=== PATIENT | female | born 1945 | race Caucasian/White ===

== ENCOUNTER 2016-08-22 09:36 | Outpatient (CLI) | payer MEDICARE, BC | END 2016-08-22 09:37 | disposition home or self-care (01) | DX: G47.33 Obstructive sleep apnea (adult) (pediatric) (principal) | CPT/HCPCS: 99214; G0463 ==

== ENCOUNTER 2017-08-12 09:29 | Outpatient (CLI) | payer MEDICARE, BC ==
--- NOTE | 2017-08-12 11:55 | XRAY Report ---
THREE VIEW RIGHT SHOULDER: 08/12/2017 CLINICAL INDICATION: Pain. FINDINGS: AP, oblique, scapular Y views of the right shoulder demonstrate severe degenerative changes of the glenohumeral joint, with bulky osteophytes. There is no evidence of acute fracture or dislocation. Surgical clips are noted in the right axilla. 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 TD: 08/12/2017 11:54
== END 2017-08-12 09:30 | disposition home or self-care (01) ==
LOC: DI.S 09:29
PROVIDERS: ATTEND Internal Medicine
DX: M19.011 Primary osteoarthritis, right shoulder (principal)

== ENCOUNTER 2017-11-12 13:07 | Outpatient (CLI) | END 2017-11-12 13:08 | disposition home or self-care (01) | CPT/HCPCS: 99214; G0463 ==

== ENCOUNTER 2019-02-11 14:03 | Outpatient (CLI) | payer MEDICARE, BC ==
[2019-02-11 15:03] VITALS: BP 122/70
--- NOTE | 2019-02-11 15:04 | SLEEP CARE CONSULTATION ---
Information from patient questionnaire entered by Isabelle Bradley. I have reviewed and concur with the information entered by Isabelle Bradley. This document represents the service I personally performed and the decisions made by me, Stephanie Archer RN, MSN, AERIAL GUNNER. History of Present Illness Previous diagnosis: Severe, Obstructive Sleep Apnea-Hypopnea Syndrome AHI: 33 Reason for CPAP/BiPAP follow up: annual Equipment type: CPAP Equipment obtained from: [employer] Mask style: Nasal Mask brand: Respironics Backup mask available: Yes Last cushion change: 1.5 weeks ago CPAP Compliance Data - Data Reviewed with Patient Average duration of nightly device use: 9.7 Compliance rate %: 100 (180 days) Current pressure setting (cmH2O): 15 Humidity setting: off Heated hose setting: off Average residual AHI: 3.5 Subjective Patient concerns: denies: aerophagia, mask discomfort, air blowing in eyes, mask leak noise, condensation in mask/hose, nasal congestion, dry mouth, nose, throat, epistaxis Observed to snore while using device: No Current pressure setting perceived as: comfortable On therapy, patient: reports: sleeping better, awakening more refreshed, being more awake and alert during the day, more rested overall. denies: drowsiness while driving Initial [place] Sleepiness Scale score: 3 Current [place] Sleepiness Scale score: 2 Allergies and Home Medications Known drug allergies: No Home medication list reviewed: Yes Allergy and home medication list: Medication Name (generic/name brand) Strength & Dosage Bupropion Hydrochloride XL 300mg/24hr tab one daily Vitamin D3 5000IU cap one daily Atorvastatin Calcium 20mg tab one daily Losartan Potassium 25mg tab one daily Metformin HCL 1000mg tab one twice daily Fluoxetine 20mg tab one daily Tylenol 500mg tab one to three daily prn vitamin B 1000mcg daily Review of Systems Review of systems same as previous: No (cataract surgery next week. right shoulder pain and ortho evaluation) Physical Exam Blood Pressure: 122/70 Cuff size: long Heart Rate: 94 O2 Saturation: 97 Height: 5 ft 6.5 in Weight (kg): 269 lb 9.6 oz Weight change since last visit: lost 4 pounds Body Mass Index: 42.8 BMI Classification: Class 3 Impression and Plan 1. Obstructive Sleep Apnea-Hypopnea Syndrome,severe , with good treatment compliance and apnea control. On CPAP therapy, the patient has better sleep quality and is more rested overall. She has started to lose weight. I discussed how her obesity can increase health risks and her first goal is about 20 pounds. She is to discuss with PCP weight loss goals and certified novell engineer consult. If loses significant weight, her apnea risks and pressure requirements will reduce. Symptoms to report were discussed. The CPAP device stopped working a couple of times the past week while she was sleeping. Thus I will have it checked to see if auto off is on and have it turned off. If not, she is to have the device checked on malfunction. Further research showed that she is due for a new device. Her device may be starting to malfunction, so I will update the device. Patient agreed with plan. A DWO prescription was made. Patient to contact this office after obtains device so a compliance follow up can be made. Since she does not use the humidity, she is to start humidity if any dryness symptoms with rationale explained. Patient's apnea severity and rationale for treatment to reduce apnea, improve sleep quality and reduce cardiovascular and cerebrovascular events was reviewed. I also reviewed the benefit of consistent device use of CPAP for diabetes and depression. She is to take her CPAP with her to any surgical procedure to use afterwards as sedation increase apnea. * Update device and set at [id number] * Discuss weight loss goals with PCP at her next visit. * Notify me if snoring with mask or feeling that the pressure is too much or too little * Attempt to lose weight * Return for follow up in 1-2 months after new device , or sooner if concerns arise I spent 100% of this 30 minute visit face to face with the patient with greater than 50% of this was spent time counseling the patient and coordination of care.
== END 2019-02-11 14:04 | disposition home or self-care (01) ==
LOC: SC 14:03
PROVIDERS: ATTEND Nurse Practitioner Family
DX: G47.33 Obstructive sleep apnea (adult) (pediatric) (principal); E66.9 Obesity, unspecified; Z68.41 Body mass index [BMI] 40.0-44.9, adult
CPT/HCPCS: 99212; 99214

== ENCOUNTER 2019-04-29 15:35 | Outpatient (CLI) | payer MEDICARE, BC ==
[2019-04-29 17:24] VITALS: BP 132/72
--- NOTE | 2019-04-29 17:24 | SLEEP CARE CONSULTATION ---
Information from patient questionnaire entered by Isabelle Bradley. I have reviewed and concur with the information entered by Isabelle Bradley. This document represents the service I personally performed and the decisions made by me, Stephanie Archer, RN, MSN, WATCHER LOOKOUT TOWER. History of Present Illness Previous diagnosis: Severe, Obstructive Sleep Apnea-Hypopnea Syndrome AHI: 33 Reason for follow up: first compliance after device update Equipment type: CPAP Equipment obtained from: [employer] Mask style: Nasal Mask brand: Respironics Backup mask available: Yes Last cushion change: 10 days ago CPAP Compliance Data - Data Reviewed with Patient Average duration of nightly device use: 9.25 Compliance rate %: 96.7 Current pressure setting (cmH2O): 15 Humidity settin Heated hose settin Average residual AHI: 3.7 Average large leak: zero Subjective Patient concerns: reports: other (sleep affected by shoulder pain, reduced with steroid shot ). denies: aerophagia, mask discomfort, air blowing in eyes, mask leak noise, condensation in mask/hose, nasal congestion, dry mouth, nose, throat, epistaxis Observed to snore while using device: No Current pressure setting perceived as: comfortable On therapy, patient: reports: sleeping better, awakening more refreshed, being more awake and alert during the day, more rested overall. denies: drowsiness while driving Initial [place] Sleepiness Scale score: 3 Current [place] Sleepiness Scale score: 3 Allergies and Home Medications Known drug allergies: Yes (lisinopril ) Home medication list reviewed: Yes Allergy and home medication list: Bupropion Hydrochloride XL 300mg/24hr tab one daily Vitamin D3 5000IU cap one daily Atorvastatin Calcium 20mg tab one daily Losartan Potassium 25mg tab one daily Metformin HCL 1000mg tab one twice daily Fluoxetine 20mg tab one daily Tylenol 500mg tab one to three daily prn Review of Systems Review of systems same as previous: No (bilateral cataract surgery with benefit noted /shoulder surgery planned may) Physical Exam Blood Pressure: 132/72 Cuff size: long Heart Rate: 83 O2 Saturation: 97 Height: 5 ft 7 in Weight: 270 lb 1.6 oz Body Mass Index: 42.3 BMI Classification: Obesity Class 3 Impression and Plan 1. Obstructive Sleep Apnea-Hypopnea Syndrome, severe, with excellent treatment compliance and good apnea control. On CPAP therapy, the patient has better sleep quality and is more rested overall. She forgot to follow up with PCP in regard to weight reduction, she was advised to review again after her shoulder surgery recovery in May. I again reminded her how significant weight loss could reduce her CPAP requirements and symptoms to report for weight loss. Patient's apnea severity and rationale for treatment to reduce apnea, improve sleep quality and reduce cardiovascular and cerebrovascular events was reviewed. I also reviewed the benefit of consistent device use of CPAP for her hypertension, diabetes, depression/anxiety. * Continue CPAP pressure at 15 cmH2O * follow up with PCP re weight loss as discussed. * Notify me if snoring with mask or feeling that the pressure is too much or too little * Attempt to lose weight * Return for follow up in 1 year , or sooner if concerns arise I spent 100% of this 20 minute visit face to face with the patient with greater than 50% of this was spent time counseling the patient and coordination of care.
== END 2019-04-29 15:36 | disposition home or self-care (01) ==
LOC: SC 15:35
PROVIDERS: ATTEND Nurse Practitioner Family
DX: G47.33 Obstructive sleep apnea (adult) (pediatric) (principal); E66.9 Obesity, unspecified; Z68.41 Body mass index [BMI] 40.0-44.9, adult
CPT/HCPCS: 99213; G0463; 99212

== ENCOUNTER 2020-05-26 15:06 | Outpatient (CLI) | payer MEDICARE, BC ==
--- NOTE | 2020-05-26 13:59 | SLEEP CARE CONSULTATION ---
Information from patient questionnaire entered by Isabelle Bradley. I have reviewed and concur with the information entered by Isabelle Bradley. This document represents the service I personally performed and the decisions made by me, Stephanie Archer, RN, MSN, TREASURER. History of Present Illness Service Date and Time: 05/26/2020 1330 Previous diagnosis: Severe, Obstructive Sleep Apnea-Hypopnea Syndrome AHI: 33 (in 2003) Reason for follow up: annual (last seen 04/2019) Equipment type: CPAP Equipment obtained from: [employer] (getting supplies as needed) Mask style: Nasal Backup mask available: Yes (old mask ) Last cushion change: 1 week ago Prior sleep studies: Yes Year and Where: 2003 - [facility] additional information: Reviewed last visit note from 05/14 prior to patient follow up visit today. This last visit was a first compliance after updating her CPAP. There was good compliance and stated benefit from treatment. She was reminded to discuss weight management with her PCP for her morbid obesity. I also informed her of weight loss effect to her CPAP pressure requirements and symptoms to report for PAP pressure adjustment. CPAP Compliance Data - Data Reviewed with Patient Average duration of nightly device use: 10 hr 11 min Compliance rate %: 99.4 (180 days) Current pressure setting (cmH2O): 15 Humidity settin Heated hose settin Average residual AHI: 4.1 Average large leak: 1 min 31 sec Subjective Patient concerns: reports: mask leak noise (adjusts mask without problem). denies: aerophagia, mask discomfort, air blowing in eyes, condensation in mask/hose, nasal congestion, dry mouth, nose, throat, epistaxis Observed to snore while using device: No Current pressure setting perceived as: comfortable On therapy, patient: reports: sleeping better, awakening more refreshed, being more awake and alert during the day, more rested overall. denies: drowsiness while driving Initial [place] Sleepiness Scale score: 3 (in 2010) Allergies and Home Medications Home medication list reviewed: Yes (increased doses of depression meds) Physical Exam Height: 5 ft 7 in Weight: 257 lb Body Mass Index: 40.2 BMI Classification: Morbidly Obese Impression and Plan 1. Obstructive Sleep Apnea-Hypopnea Syndrome, severe, with good treatment compliance and good apnea control. On CPAP therapy, the patient has better sleep quality and is more rested overall. She has increased her sleep time since last year and Covid pandemic activity restrictions from 9hours and 15 minutes to 10 hours and 11 minutes. I reviewed that most people require 7-9 hours of sleep and too much sleep can contribute to fatigue as well as increased mortality. Increased sleep can also be from depression. She states her PCP is aware of sleep needs and she is working closely with her PCP on her depression. Depression medication doses have been adjusted with benefit stated. She will try to reduce time in bed. Patient has also been successful in losing weight this past year and plans on losing more. She attributes this to a new roommate who cooks nutritious meals so she does the clean up which is working well. She is also increasing exercise. Currently patients BMI is 42.3 obesity class . I reviewed how her loss of weight can reduce the risk of apnea, CPAP pressure requirements and overall health risks especially cardiovascular and diabetes. Thus patient is advised to continue to lose weight. The patient's CPAP pressure range should accommodate some weight loss.was changed to 12-15 cmH2O to accommodate future weight loss. Symptoms to report for additional pressure adjustment discussed. Patient's apnea severity and rationale for treatment to reduce apnea, improve sleep quality and reduce cardiovascular and cerebrovascular events was reviewed. I also reviewed the benefit of consistent device use of CPAP for hypertension, depression/anxiety. * * Changeauto CPAP pressure to 12-15 cmH2O * Notify me if snoring with mask or feeling that the pressure is too much or too little * Continue to lose weight * Call this office if any problems using CPAP * Return for follow up in , or sooner if concerns arise Visit Type: Telehealth Phone ([employer]) Patient Location: Home Location of Provider: Home Patient agrees and consents to this telehealth visit type: Yes Patient agrees to have their insurance billed: Yes Time Spent with Patient (minutes): 14 Provider Statement: I spent 100% of the Telehealth Phone Call with the patient with greater than 50% spent counseling the patient and coordination of care.
== END 2020-05-26 15:07 | disposition home or self-care (01) ==
LOC: SC 15:06
PROVIDERS: ATTEND Nurse Practitioner Family
DX: G47.33 Obstructive sleep apnea (adult) (pediatric) (principal); E66.01 Morbid (severe) obesity due to excess calories; Z68.41 Body mass index [BMI] 40.0-44.9, adult

== ENCOUNTER 2022-02-14 09:22 | Outpatient (CLI) | payer MEDICARE, BC ==
[2022-02-14 14:35] LABS: BASOPHILS % (AUTO) 0.8 %; EOSINOPHILS # (AUTO) 0.3 10^3/uL (0.0-0.7); EOSINOPHILS % (AUTO) 6.4 %; HCT - HEMATOCRIT 39.5 % (37.0-47.0); HGB - HEMOGLOBIN 12.7 g/dL (12.0-16.0); LYMPHOCYTES # (AUTO) 2.4 10^3/uL (1.5-3.5); LYMPHOCYTES % (AUTO) 46.1 %; MEAN CORPUSCULAR HEMOGLOBIN 30.8 pg (27.0-31.0); MEAN CORPUSCULAR HGB CONC 32.2 g/dL (32.0-36.0); MEAN CORPUSCULAR VOLUME 95.9 fL (81.0-99.0); MONOCYTES # (AUTO) 0.4 10^3/uL (0.0-1.0); MONOCYTES % (AUTO) 7.2 %; NEUTROPHILS # (AUTO) 2.1 10^3/uL (1.5-6.6); NEUTROPHILS % (AUTO) 39.3 %; PLT - PLATELET COUNT 271 10^3/uL (130-450); RED BLOOD COUNT 4.12 10^6/uL (4.20-5.40); RED CELL DISTRIBUTION WIDTH 13.1 % (12.0-15.0); WHITE BLOOD COUNT 5.3 x10^3/uL (4.8-10.8)
[2022-02-14 15:27] LABS: ALBUMIN 4.1 g/dL (3.2-5.5); ALBUMIN/GLOBULIN RATIO 1.4 (1.0-2.2); BILIRUBIN,TOTAL 0.9 mg/dL (0.2-1.0); CALCIUM 9.5 mg/dL (8.5-10.3); CREATININE 1.3 mg/dL (0.4-1.0); POTASSIUM 4.7 mmol/L (3.5-5.0); TOTAL PROTEIN 7.1 g/dL (6.7-8.2)
[2022-02-14 22:15] LABS: ESTIMATED AVERAGE GLUCOSE 140 mg/dL (70-100); HEMOGLOBIN A1c% 6.5 % (4.27-6.07)
== END 2022-02-14 09:23 | disposition home or self-care (01) ==
LOC: LAB.S 09:22
PROVIDERS: ATTEND Internal Medicine
DX: E11.649 Type 2 diabetes mellitus with hypoglycemia without coma (principal); I10 Essential (primary) hypertension
CPT/HCPCS: 36415; 80053; 82043; 82570; 83036; 85025

== ENCOUNTER 2022-08-14 12:47 | Outpatient (CLI) | payer MEDICARE, BC ==
[2022-08-14 13:29] VITALS: BP 134/76
--- NOTE | 2022-08-14 13:29 | SLEEP CARE CONSULTATION ---
Information from patient questionnaire entered by Mary Martinez. I have reviewed and concur with the information entered by Mary Martinez. This document represents the service I personally performed and the decisions made by me, Barb Brothers ARNP. History of Present Illness Service Date and Time: 08/14/2022 1247 Previous diagnosis: Severe, Obstructive Sleep Apnea-Hypopnea Syndrome AHI: 33 (in 2003) Reason for follow up: annual (LAST SEEN 04/2020) Equipment type: CPAP ([employer] Dreamstation) Equipment obtained from: [employer] (getting supplies as needed) Mask style: Nasal Mask brand: Resmed (Mirage FX) Backup mask available: Yes (old mask) Last cushion change: last week Prior sleep studies: Yes Year and Where: 2003 - [facility] [place], [place] HPI additional information: KAYLEEN JERNIGAN was diagnosed to have severe, AHI 33, obstructive sleep apnea- hypopnea syndrome and returned today for CPAP therapy annual follow-up. Sleep Study - Results Prior sleep studies: Yes Year and Where: 2003 - [facility] [place], [place] CPAP Compliance Data - Data Reviewed with Patient Average duration of nightly device use: 10 hours 22 minutes Compliance rate %: 98.9 (179/180 days used) Current pressure setting (cmH2O): 15 Average residual AHI: 3.5 Central apnea: 0.2 Obstructive apnea: 1.6 Hypopnea: 1.7 Average large leak: 5 minutes 19 secs Subjective Missed days of use due to: reports: other (power outage) Patient concerns: denies: aerophagia, mask discomfort, air blowing in eyes, mask leak noise, condensation in mask/hose, nasal congestion, dry mouth, nose, throat, epistaxis Observed to snore while using device: No Current pressure setting perceived as: comfortable On therapy, patient: reports: sleeping better, awakening more refreshed, being more awake and alert during the day, more rested overall. denies: drowsiness while driving Initial [place] Sleepiness Scale score: 3 (in 2010) Current [place] Sleepiness Scale score: 2 (08/14/22) Allergies and Home Medications Known drug allergies: Yes (Lisinopril) Drug allergies reviewed: Yes Home medication list reviewed: Yes (fluoxetine 40 mg daily) Review of Systems Review of systems same as previous: No (L breast CA, mastectomy; R shoulder injury-waiting to have surgery) Physical Exam Vital signs obtained and entered by: MARY Gallegos MA Blood Pressure: 134/76 (LEFT ARM) Cuff size: long Heart Rate: 87 O2 Saturation: 95 Height: 5 ft 7 in Weight: 265 lb 6.4 oz Body Mass Index: 41.5 BMI Classification: Morbidly Obese Impression and Plan 1. Obstructive Sleep Apnea-Hypopnea Syndrome, severe, with good treatment compliance and good apnea control. On CPAP therapy, the patient has better sleep quality and is more rested overall. I informed the patient that [employer] has a recall on several devices like the patients machine. Patient was encouraged to register their device online with [employer] for the recall to see if their device is affected. If their device is affected they should start a claim. Patient denies any black particles seen in machine or hoses, any unusual odors coming from device. Patient has recently been having shortness of breath that is being evaluated by her primary doctor. If patient is not able to sleep due to waking up choking, gasping for air or other respiratory distress that they may decide to continue using it until it is either replaced or repaired. If patient has an older device that is not on the recall they may switch to using that in the meantime or obtain a travel CPAP on their own. She states she cannot sleep without her CPAP. Patient voiced understanding and agreement with plan. Patient's apnea severity and rationale for treatment to reduce apnea, improve sleep quality and reduce cardiovascular and cerebrovascular events was reviewed. I also reviewed the benefit of consistent device use of CPAP for hypertension, depression and anxiety. 2. Obesity, unspecified. Currently patients BMI is 41.5. Obesity increases the risk of apnea, CPAP pressure requirements and overall health risks especially cardiovascular and diabetes. Thus patient is advised to lose weight. * Continue CPAP pressure at 15 cmH2O * [place] CPAP with [employer] for recall * Update supplies * Notify me if snoring with mask or feeling that the pressure is too much or too little * Attempt to lose weight * Call this office if any problems using CPAP * Return for follow up in [1 year], or sooner if concerns arise Counseling Topics: Spare mask, Weight loss health impact Visit Type: In Office Time Spent with Patient (minutes): 24 Provider Statement: I spent 100% of the Face to Face Visit with the patient with greater than 50% spent counseling the patient and coordination of care.
== END 2022-08-14 12:48 | disposition home or self-care (01) ==
LOC: SC 12:47
PROVIDERS: ATTEND Nurse Practitioner Family
DX: G47.33 Obstructive sleep apnea (adult) (pediatric) (principal); E66.01 Morbid (severe) obesity due to excess calories; Z68.41 Body mass index [BMI] 40.0-44.9, adult
CPT/HCPCS: 99213; G0463; 99212

== ENCOUNTER 2023-06-17 09:37 | Outpatient (CLI) | payer MEDICARE, BC ==
[2023-06-17 14:56] LABS: BASOPHILS % (AUTO) 0.8 %; EOSINOPHILS # (AUTO) 0.4 10^3/uL (0.0-0.7); EOSINOPHILS % (AUTO) 7.3 %; HCT - HEMATOCRIT 39.3 % (37.0-47.0); HGB - HEMOGLOBIN 12.3 g/dL (12.0-16.0); LYMPHOCYTES # (AUTO) 1.9 10^3/uL (1.5-3.5); LYMPHOCYTES % (AUTO) 35.7 %; MEAN CORPUSCULAR HEMOGLOBIN 30.7 pg (27.0-31.0); MEAN CORPUSCULAR HGB CONC 31.3 g/dL (32.0-36.0); MEAN PLATELET VOLUME 11.4 fL (7.9-10.8); MONOCYTES # (AUTO) 0.4 10^3/uL (0.0-1.0); MONOCYTES % (AUTO) 7.1 %; NEUTROPHILS # (AUTO) 2.5 10^3/uL (1.5-6.6); NEUTROPHILS % (AUTO) 48.7 %; PLT - PLATELET COUNT 256 10^3/uL (130-450); RED BLOOD COUNT 4.01 10^6/uL (4.20-5.40); RED CELL DISTRIBUTION WIDTH 12.7 % (12.0-15.0); WHITE BLOOD COUNT 5.2 x10^3/uL (4.8-10.8)
[2023-06-17 15:01] LABS: CREATININE,URINE 162.8 mg/dL; MICROALBUM/CREATININE RATIO,UR 47.9 ug/mg (<30.0); MICROALBUMIN,URINE 7.8 mg/dL
[2023-06-17 15:23] LABS: ALBUMIN 4.3 g/dL (3.2-5.5); ALBUMIN/GLOBULIN RATIO 1.3 (1.0-2.2); BILIRUBIN,TOTAL 0.4 mg/dL (0.2-1.0); CALCIUM 9.8 mg/dL (8.5-10.3); CREATININE 1.2 mg/dL (0.6-1.3); POTASSIUM 4.5 mmol/L (3.5-4.5); TOTAL PROTEIN 7.6 g/dL (6.4-8.9)
[2023-06-17 21:03] LABS: ESTIMATED AVERAGE GLUCOSE 157 mg/dL (70-100); HEMOGLOBIN A1c% 7.1 % (4.27-6.07)
== END 2023-06-17 09:38 | disposition home or self-care (01) ==
LOC: LAB.S 09:37
PROVIDERS: ATTEND Internal Medicine
DX: E11.9 Type 2 diabetes mellitus without complications (principal)
CPT/HCPCS: 36415; 80053; 82043; 82570; 83036; 85025

== ENCOUNTER 2023-08-05 09:27 | Outpatient (CLI) | payer MEDICARE, BC ==
[2023-08-05 09:41] LABS: BASOPHILS % (AUTO) 0.6 %; EOSINOPHILS # (AUTO) 0.4 10^3/uL (0.0-0.7); EOSINOPHILS % (AUTO) 5.9 %; HCT - HEMATOCRIT 41.3 % (37.0-47.0); HGB - HEMOGLOBIN 13.3 g/dL (12.0-16.0); LYMPHOCYTES # (AUTO) 2.4 10^3/uL (1.5-3.5); LYMPHOCYTES % (AUTO) 33.7 %; MEAN CORPUSCULAR HEMOGLOBIN 30.4 pg (27.0-31.0); MEAN CORPUSCULAR HGB CONC 32.2 g/dL (32.0-36.0); MEAN CORPUSCULAR VOLUME 94.3 fL (81.0-99.0); MEAN PLATELET VOLUME 9.8 fL (7.9-10.8); MONOCYTES # (AUTO) 0.4 10^3/uL (0.0-1.0); NEUTROPHILS # (AUTO) 3.8 10^3/uL (1.5-6.6); NEUTROPHILS % (AUTO) 54.5 %; PLT - PLATELET COUNT 264 10^3/uL (130-450); RED BLOOD COUNT 4.38 10^6/uL (4.20-5.40); RED CELL DISTRIBUTION WIDTH 12.1 % (12.0-15.0)
[2023-08-05 09:51] LABS: PT - PROTHROMBIN TIME 10.8 secs (9.9-12.6)
[2023-08-05 09:52] LABS: ALBUMIN 4.6 g/dL (3.2-5.5); ALBUMIN/GLOBULIN RATIO 1.5 (1.0-2.2); BILIRUBIN,TOTAL 0.5 mg/dL (0.2-1.0); CALCIUM 10.3 mg/dL (8.5-10.3); CREATININE 1.5 mg/dL (0.6-1.3); POTASSIUM 4.6 mmol/L (3.5-4.5); TOTAL PROTEIN 7.7 g/dL (6.4-8.9)
[2023-08-05 15:06] LABS: BILIRUBIN,URINE NEGATIVE (NEGATIVE); GLUCOSE, URINE (UA) >=1000 mg/dL (NEGATIVE); KETONES,URINE (UA) NEGATIVE (NEGATIVE); LEUKOCYTE ESTERASE, URINE TRACE (NEGATIVE); NITRITE,URINE NEGATIVE (NEGATIVE); OCCULT BLOOD,URINE LARGE (NEGATIVE); PH,URINE 5.5 PH (5.0-7.5); PROTEIN,URINE 30 mg/dL (NEGATIVE); UROBILINOGEN,URINE 0.2 (NORMAL) E.U./dL (NORMAL)
[2023-08-05 15:28] LABS: BACTERIA,URINE Rare /HPF (None Seen); CLARITY,URINE BLOODY (CLEAR); RBC,URINE TNTC /HPF (0-5); SQUAMOUS EPITHELIAL CELL,UR RARE Squamous (<= Few)
== END 2023-08-05 09:28 | disposition home or self-care (01) ==
LOC: LAB 09:27
PROVIDERS: ATTEND Emergency Medicine
DX: R31.9 Hematuria, unspecified (principal)
CPT/HCPCS: 36415; 80053; 81001; 85025; 85610; 87086

== ENCOUNTER 2023-08-12 13:38 | Outpatient (CLI) | payer MEDICARE, BC ==
--- NOTE | 2023-08-12 18:04 | XRAY Report ---
PROCEDURE: Hips w/Pelvis 2-3V BL INDICATIONS: HIP PAIN, RIGHT TECHNIQUE: 2 view(s) of the hip were acquired. COMPARISON: None. FINDINGS: Bones: No fractures or dislocations. Severe left hip joint osteoarthritis and moderate right hip octavio nt osteoarthritis is seen. No evidence of avascular necrosis of femoral head. No suspicious bony lesi ons. The visualized pelvic ring appears intact. Soft tissues: No suspicious soft tissue calcifications or masses. IMPRESSION: No acute bony abnormality. 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 No evidence of a vascular necrosis. Reviewed by: Quintin Montejo MD on 08/12/2023 6:03 PM PDT Approved by: Quintin Montejo MD on 08/12/2023 6:03 PM PDT Station ID: [id number]
== END 2023-08-12 13:39 | disposition home or self-care (01) ==
LOC: DI.S 13:38
PROVIDERS: ATTEND Internal Medicine
DX: M16.0 Bilateral primary osteoarthritis of hip (principal)

== ENCOUNTER 2023-08-16 11:39 | Outpatient (CLI) | payer MEDICARE, BC ==
--- NOTE | 2023-08-16 12:11 | Sleep Patient Instructions ---
Sleep Center Visit Summary - Patient Visit Information Reason for Visit: Annual follow-up - Patient Instructions Additional Instructions: You will continue with CPAP therapy with pressure set at 15 cmH2O. A supply prescription will be updated with your DME. We encourage you to continue to try to lose weight. Please follow up with the sleep care office in 1 year. - Clinic Information Contact: [facility] [address] [place] [address] [email or web address] T: [phone]
--- NOTE | 2023-08-16 12:20 | SLEEP CARE CONSULTATION ---
Information from patient questionnaire entered by Mary Martinez. I have reviewed and concur with the information entered by Mary Martinez. This document represents the service I personally performed and the decisions made by , Barb Brothers ARNP. History of Present Illness Service Date and Time: 08/16/2023 1139 Previous diagnosis: Severe, Obstructive Sleep Apnea-Hypopnea Syndrome AHI: 33 (in 2003) Reason for follow up: annual (LAST SEEN 07/2022) Accompanied by: Danny Equipment type: CPAP ([employer] Dreamstation SET UP DATE 03/04/2019) Equipment obtained from: [employer] (getting supplies as needed) Mask style: Nasal Mask brand: Resmed (Mirage FX) Backup mask available: No (will keep old mask when replaced) Last cushion change: 4-5 days ago Prior sleep studies: Yes Year and Where: 2003 - [facility] in [place], [place] HPI additional information: KAYLEEN JERNIGAN was diagnosed to have severe, AHI 33, obstructive sleep apnea- hypopnea syndrome and returned today for CPAP therapy annual follow-up. Sleep Study - Results Prior sleep studies: Yes Year and Where: 2003 - [facility] [place], [place] CPAP Compliance Data - Data Reviewed with Patient Average duration of nightly device use: 11 HRS 11 MINS 30 SEC Compliance rate %: 100 (08/13/22-08/12/23; 365/365 days used) Current pressure setting (cmH2O): 15 Average residual AHI: 4.2 Central apnea: 0.3 Obstructive apnea: 2.2 Hypopnea: 1.7 Average large leak: 5 mins 25 secs Subjective Patient concerns: reports: nasal congestion (not just with CPAP). denies: aerophagia, mask discomfort, air blowing in eyes, mask leak noise, condensation in mask/hose, dry mouth, nose, throat, epistaxis Observed to snore while using device: No Current pressure setting perceived as: comfortable On therapy, patient: reports: sleeping better, awakening more refreshed, being more awake and alert during the day, more rested overall. denies: drowsiness while driving Initial [place] Sleepiness Scale score: 3 (in 2010) Current [place] Sleepiness Scale score: 2 (08/16/23) Allergies and Home Medications Known drug allergies: No Drug allergies reviewed: Yes Home medication list reviewed: Yes (Jardiance; stopped metformin) Allergy and home medication list: Allergies lisinopril Adverse Reaction (Verified 08/14/23 12:21) cough Review of Systems Review of systems same as previous: Yes (NO CHANGE) Physical Exam Vital signs obtained and entered by: MARY Gallegos MA Blood Pressure: 162/91 (LEFT ARM) Cuff size: regular Heart Rate: 73 O2 Saturation: 96 Height: 5 ft 7 in Weight: 265 lb 9.6 oz Body Mass Index: 41.5 BMI Classification: Morbidly Obese Impression and Plan 1. Obstructive Sleep Apnea-Hypopnea Syndrome, severe, with good treatment compliance and good apnea control. On CPAP therapy, the patient has better sleep quality and is more rested overall. Patient has not yet got a replacement for her recalled DreamStation. I encouraged her to call the company because she has not heard about the machine in a long time. She voiced understanding and will give them a call. She is eligible for a new device in February 2024. Patient has significant improvement of their sleep apnea and is satisfied with current CPAP therapy. Patient denies problems with oral dryness, nasal congestion, epistaxis, skin irritation or aerophagia. Patient's apnea severity and rationale for treatment to reduce apnea, improve sleep quality and reduce cardiovascular and cerebrovascular events was reviewed. I also reviewed the benefit of consistent device use of CPAP for hypertension, depression/anxiety. 2. Obesity, unspecified. Currently patients BMI is 41.5. Obesity increases the risk of apnea, CPAP pressure requirements and overall health risks especially cardiovascular and diabetes. Thus patient is advised to lose weight. * Continue CPAP pressure at 15 cmH2O * Update supply prescription * Notify me if snoring with mask or feeling that the pressure is too much or too little * Attempt to lose weight * Call this office if any problems using CPAP * Return for follow up in 12 months, or sooner if concerns arise Counseling Topics: Weight loss health impact Prescriptions: Device supplies Follow up with Sleep Care in: 1 year Visit Type: In Office Time Spent with Patient (minutes): 22 Provider Statement: I spent 100% of the Face to Face Visit with the patient with greater than 50% spent counseling the patient and coordination of care.
[2023-08-16 12:21] VITALS: BP 162/91; O2SAT 96
== END 2023-08-16 11:40 | disposition home or self-care (01) ==
LOC: SC 11:39
PROVIDERS: ATTEND Nurse Practitioner Family
DX: G47.33 Obstructive sleep apnea (adult) (pediatric) (principal); E66.01 Morbid (severe) obesity due to excess calories; Z68.41 Body mass index [BMI] 40.0-44.9, adult
CPT/HCPCS: 99213; G0463; 99212

== ENCOUNTER 2023-08-28 12:17 | Outpatient (CLI) | payer MEDICARE, BC | END 2023-08-28 12:18 | disposition home or self-care (01) | LOC: DI 12:17 | PROVIDERS: ATTEND Internal Medicine | DX: R06.09 Other forms of dyspnea (principal) | CPT/HCPCS: 93307 ==

== ENCOUNTER 2024-01-15 11:28 | Emergency (ER) | payer MEDICARE, BC ==
[2024-01-15 11:41] VITALS: BP 169/73; O2SAT 95
[2024-01-15] MEDS: KETOROLAC 60 MG/2 ML VIAL IM STA (11:55)
--- NOTE | 2024-01-15 11:55 | ED Physician Documentation ---
PD HPI LOWER EXT INJURY - Stated complaint Stated Complaint: RT HIP/LEG PX - Chief complaint Chief Complaint: Ext Problem - History obtained from History obtained from: Patient - Additional information Additional information: She is chronic issues with her hips and known arthritis. Over the last 2 weeks the pain in her right hip especially has been intolerable. For it at home she takes gabapentin going back and forth between 600-900 mg 4 times a day and Tylenol. There is no acute injury. She is able to walk and bear weight with a walker. She has an appointment for a steroid hip injection in a few days. 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 : Renal insuffiency HEENT: None Psych: None Musculoskeletal: None Derm: None - Past Surgical History Past Surgical History: Yes Ortho: Other - Present Medications Home Medications: Ambulatory Orders Medication Instructions Recorded Confirmed Atorvastatin [Lovastatin] 20 mg PO QPM 01/01/14 08/16/23 Cholecalciferol (Vitamin D3) 10,000 unit PO DAILY 01/01/14 08/16/23 [Vitamin D3] Citalopram [CeleXA] 20 mg PO DAILY 01/01/14 08/16/23 Losartan [Cozaar] 25 mg PO DAILY 01/01/14 08/16/23 buPROPion HCL [Bupropion Xl] 300 mg PO QPM 01/01/14 08/16/23 Aspirin [Aspirin EC] See Rx Instructions .ROUTE .COMPLEX 08/14/22 08/16/23 Cyanocobalamin (Vitamin B-12) See Rx Instructions .ROUTE .COMPLEX 08/14/22 08/16/23 [Vitamin B12] Letrozole See Rx Instructions .ROUTE .COMPLEX 08/14/22 08/16/23 Empagliflozin [Jardiance] See Rx Instructions .ROUTE .COMPLEX 08/16/23 08/16/23 Gabapentin [Neurontin] 100 mg PO QID 01/15/24 Oxycodone HCl/Acetaminophen 1 - 2 each PO Q6H PRN #20 tablet 01/15/24 [Percocet 5-325 mg Tablet] - Allergies Allergies/Adverse Reactions: Allergies Allergy/AdvReac Type Severity Reaction Status Date / Time lisinopril AdvReac cough Verified 01/15/24 11:42 - Social History Does the pt smoke?: No Smoking Status: Never smoker Does the pt drink ETOH?: No Does the pt have substance abuse?: No - Immunizations Immunizations are current?: Yes - POLST Patient has POLST: No PD ED PE NORMAL - Vitals Vital signs reviewed: Yes - General General: Alert and oriented X 3, No acute distress - Extremities Extremities: Other (Severe pain with rotation of the right hip. No tenderness of the knee or low back.) - Neuro Neuro: Alert and oriented X 3, Other (The patient has equal and normal Achilles and patellar reflexes bilaterally. Normal sensation in all areas of the legs. Patient denies saddle anesthesia. Normal strength in flexion-extension at the ankles, knees, and flexion of the hips.) Results - Vitals Vitals: Vital Signs - 24 hr 01/15/24 01/15/24 11:32 11:39 Temperature 36.8 C Heart Rate 79 Respiratory 17 17 Rate Blood Pressure 169/73 H O2 Saturation 95 Oxygen O2 Source Room air PD Medical Decision Making - ED course ED course: Seeming like a primary hip issue, acute on chronic. Had radiography in July showing bilateral hip arthritis. Will help her with pain management pending follow-up and she specifically wanted dexamethasone stating that it was helpful in the past. I discussed with her that it may increase her blood sugars but she says that has not been her personal experience with it. Departure - Departure Disposition: 01 Home, Self Care Clinical Impression: Osteoarthritis of right hip Qualifiers: Osteoarthritis type: primary Qualified Code(s): M16.11 - Unilateral primary osteoarthritis, right hip Condition: Good Record reviewed to determine appropriate education?: Yes Instructions: Hip Osteoarthritis, Hip Osteoarthritis Exercise Prescriptions: Oxycodone HCl/Acetaminophen [Percocet 5-325 mg Tablet] 1 - 2 each PO Q6H PRN #20 tablet PRN Reason: pain Comments: I [facility] in [place]. Follow-up with your orthopedic surgeon for further evaluation and treatment. Return for new or worsening symptoms. I am prescribing a short course of narcotic pain medication for you. These are potentially dangerous and addictive medications that should be used carefully. These medications may constipate you. Take an nphc-eqg-pqveftd stool softener (docusate) twice daily with plenty of water while taking these medications. If you go 24 hours without a bowel movement, take vmbu-uhq-wolhxbu miralax, per package instructions. Do not drink or drive while taking these medications. If you received narcotic or sedating medications while in the emergency department, do not drive for 24 hours. Store this medication in a safe, secure place and out of reach of children. It is a violation of federal law to give or sell this medication to another per son or to use in a manner other than prescribed. The ED will not refill narcotic prescriptions, including prescriptions lost or stolen. To dispose of unwanted medications: 1. [facility] a [facility] box for medication in pill form only (no liquids) 8:00 am to 4:30 p.m. Saturday-Saturday in the lobby of the [facility] [place], [address] [place] [address]. Empty pills into ziplock bag before disposal. Call [phone] for information. 2.[employer] is a free service available to all [facility] residents. Go to [email or web address] Note that many narcotic pain relievers also contain Tylenol/acetaminophen. Please ensure that your total dose of acetaminophen from all sources does not exceed 3 g (3000 mg) per day.
[2024-01-15] MEDS: DEXAMETHASONE 10 MG/ML VIAL IM STA (11:56)
== END 2024-01-15 12:09 | disposition home or self-care (01) ==
LOC: ED 11:28
DX: M16.11 Unilateral primary osteoarthritis, right hip (principal); I10 Essential (primary) hypertension; E11.9 Type 2 diabetes mellitus without complications; Z79.899 Other long term (current) drug therapy; Z79.82 Long term (current) use of aspirin; Z79.84 Long term (current) use of oral hypoglycemic drugs
CPT/HCPCS: 96372; 99283

== ENCOUNTER 2024-01-18 11:28 | Emergency (ER) | payer MEDICARE, BC ==
--- NOTE | 2024-01-18 11:40 | ED Physician Documentation ---
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 : Renal insuffiency HEENT: None Psych: None Musculoskeletal: None Derm: None - Past Surgical History Past Surgical History: Yes Ortho: Other - Present Medications Home Medications: Ambulatory Orders Medication Instructions Recorded Confirmed Atorvastatin [Lovastatin] 20 mg PO QPM 01/01/14 08/16/23 Cholecalciferol (Vitamin D3) 10,000 unit PO DAILY 01/01/14 08/16/23 [Vitamin D3] Citalopram [CeleXA] 20 mg PO DAILY 01/01/14 08/16/23 Losartan [Cozaar] 25 mg PO DAILY 01/01/14 08/16/23 buPROPion HCL [Bupropion Xl] 300 mg PO QPM 01/01/14 08/16/23 Aspirin [Aspirin EC] See Rx Instructions .ROUTE .COMPLEX 08/14/22 08/16/23 Cyanocobalamin (Vitamin B-12) See Rx Instructions .ROUTE .COMPLEX 08/14/22 08/16/23 [Vitamin B12] Letrozole See Rx Instructions .ROUTE .COMPLEX 08/14/22 08/16/23 Empagliflozin [Jardiance] See Rx Instructions .ROUTE .COMPLEX 08/16/23 08/16/23 Gabapentin [Neurontin] 100 mg PO QID 01/15/24 Oxycodone HCl/Acetaminophen 1 - 2 each PO Q6H PRN #20 tablet 01/15/24 [Percocet 5-325 mg Tablet] - Allergies Allergies/Adverse Reactions: Allergies Allergy/AdvReac Type Severity Reaction Status Date / Time lisinopril AdvReac cough Verified 01/18/24 11:32 - Social History Does the pt smoke?: No Smoking Status: Never smoker Does the pt drink ETOH?: No Does the pt have substance abuse?: No - Immunizations Immunizations are current?: Yes - POLST Patient has POLST: No Results - Vitals Vitals: Vital Signs - 24 hr 01/18/24 11:32 Temperature 36.5 C Heart Rate 63 Respiratory 16 Rate Blood Pressure 171/96 H O2 Saturation 96 Oxygen O2 Source Room air Departure - Departure
--- NOTE | 2024-01-18 12:10 | ED Physician Documentation ---
History of Present Illness - Stated complaint Stated Complaint: RT HIP PX - Chief complaint Chief Complaint: Ext Problem - History obtained from History obtained from: Patient - History of Present Illness Pain level max: 10 Pain level now: 2 - Additonal information Additional information: Patient is a 78-year-old female who has a history of arthritis in the hips. She states that she is seeing an orthopedist from the [facility]. She states that they have told her she needs to lose weight before considering surgery. She states that over the past several days she has had increasing pain in the right hip. Was seen here recently, prescribed oxycodone. She had an injection in her hip 2 days ago. She states that the pain has increased, is having difficulty standing and walking. She is using a walker at home. The pain is minimal at rest, but as soon as she moves she gets a sharp pain down the anterior aspect of the right thigh. No falls. No trauma. No head or neck or back pain. 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 : Renal insuffiency HEENT: None Psych: None Musculoskeletal: None Derm: None - Past Surgical History Past Surgical History: Yes Ortho: Other - Present Medications Home Medications: Ambulatory Orders Medication Instructions Recorded Confirmed Atorvastatin [Lovastatin] 20 mg PO QPM 01/01/14 08/16/23 Cholecalciferol (Vitamin D3) 10,000 unit PO DAILY 01/01/14 08/16/23 [Vitamin D3] Citalopram [CeleXA] 20 mg PO DAILY 01/01/14 08/16/23 Losartan [Cozaar] 25 mg PO DAILY 01/01/14 08/16/23 buPROPion HCL [Bupropion Xl] 300 mg PO QPM 01/01/14 08/16/23 Aspirin [Aspirin EC] See Rx Instructions .ROUTE .COMPLEX 08/14/22 08/16/23 Cyanocobalamin (Vitamin B-12) See Rx Instructions .ROUTE .COMPLEX 08/14/22 08/16/23 [Vitamin B12] Letrozole See Rx Instructions .ROUTE .COMPLEX 08/14/22 08/16/23 Empagliflozin [Jardiance] See Rx Instructions .ROUTE .COMPLEX 08/16/23 08/16/23 Gabapentin [Neurontin] 100 mg PO QID 01/15/24 Oxycodone HCl/Acetaminophen 1 - 2 each PO Q6H PRN #20 tablet 01/15/24 [Percocet 5-325 mg Tablet] Gabapentin [Neurontin] 300 mg PO TID #30 cap 01/18/24 HYDROmorphone [Dilaudid] 2 mg PO Q4H PRN #14 tablet 01/18/24 Meloxicam [Mobic] 7.5 mg PO BID PRN 10 Days #20 01/18/24 tablet - Allergies Allergies/Adverse Reactions: Allergies Allergy/AdvReac Type Severity Reaction Status Date / Time lisinopril AdvReac cough Verified 01/18/24 11:32 - Social History Does the pt smoke?: No Smoking Status: Never smoker Does the pt drink ETOH?: No Does the pt have substance abuse?: No - Immunizations Immunizations are current?: Yes - POLST Patient has POLST: No PD ED PE NORMAL - Vitals Vital signs reviewed: Yes - General General: Alert and oriented X 3, No acute distress - HEENT HEENT: Moist mucous membranes - Cardiac Cardiac: RRR - Respiratory Respiratory: No respiratory distress, Clear bilaterally - Back Back: No spinal TTP (No midline tenderness to palpation or percussion. No step- off or deformity. No paraspinal spasm. No tenderness over the sacroiliac joints) - Derm Derm: Warm and dry - Extremities Extremities: No edema, No calf tenderness / cord, Other (R hip - There is significant pain with internal rotation of the right hip. Limited flexion secondary to pain. Does not have much pain with external rotation of the hip. Does have some pain with full extension. Neurovascular intact. No significant tenderness over the right hip area) - Neuro Neuro: Alert and oriented X 3, No motor deficit, No sensory deficit Results - Vitals Vitals: Vital Signs - 24 hr 01/18/24 01/18/24 11:32 13:38 Temperature 36.5 C 36.5 C Heart Rate 63 60 Respiratory 16 16 Rate Blood Pressure 171/96 H 150/88 H O2 Saturation 96 100 Oxygen O2 Source Room air - Rads (name of study) Right hip x-ray Relevant Findings:: Final report received, See rad report PD Medical Decision Making - ED course Complexity details: reviewed results, re-evaluated patient, considered differential, d/w patient, d/w family (friends) ED course: 78-year-old female with what appears to be increased osteoarthritis of the right hip. Possible that she has a labrum tear or other injury as well. She had a steroid injection less than 48 hours ago. Will not give another dose of steroids today. She was given a dose of Dilaudid IM, Toradol IM. Pain greatly improved. We will place her on long-acting anti-inflammatory medication for home along with Dilaudid for breakthrough pain. She also states that gabapentin had helped in the past, we will restart this for her. Recommend that she foll ow-up with her PCP for further care, I recommend MRI of the right hip to evaluate for other potential causes of the pain. May benefit from physical therapy as well. Has a walker at home. Patient counseled regarding signs and symptoms for which I believe and urgent re-evaluation would be necessary. Patient with good understanding of and agreement to plan and is comfortable going home at this time This document was made in part using voice recognition software. While efforts are made to proofread this document, sound alike and grammatical errors may occur. Departure - Departure Disposition: Home, Self Care Clinical Impression: Osteoarthritis of right hip Qualifiers: Osteoarthritis type: unspecified Qualified Code(s): M16.11 - Unilateral primary osteoarthritis, right hip Condition: Good Instructions: ED Degenerative Joint Disease Follow-Up: Ute Arzate MD [Primary Care Provider] - Prescriptions: HYDROmorphone [Dilaudid] 2 mg PO Q4H PRN #14 tablet PRN Reason: hip pain Meloxicam [Mobic] 7.5 mg PO BID PRN 10 Days #20 tablet PRN Reason: hip pain Gabapentin [Neurontin] 300 mg PO TID #30 cap Comments: As we discussed you do have significant osteoarthritis in the right hip. It is possible that you have a secondary injury such as a labrum injury to the right hip causing the increasing pain. It is recommended that you have an MRI of the right hip, this can be ordered by your primary care provider. Radiology recommends an arthrogram protocol for this. Your prescriptions were sent to [facility] in [place]. Please return if you worsen. I am prescribing a short course of narcotic pain medication for you. These are potentially dangerous and addictive medications that should be used carefully. These medications may constipate you. Take an vxre-afc-ssagnwg stool softener (docusate) twice daily with plenty of water while taking these medications. If you go 24 hours without a bowel movement, take haym-mla-gwhxxyc miralax, per package instructions. Do not drink or drive while taking these medications. If you received narcotic or sedating medications while in the emergency department, do not drive for 24 hours. Store this medication in a safe, secure place and out of reach of children. It is a violation of federal law to give or sell this medication to another person or to use in a manner other than prescribed. The ED will not refill narcotic prescriptions, including prescriptions lost or stolen. To dispose of unwanted medications: 1. [facility] [address] [facility] in [place] has a medication drop box. They accept prescription medications (in pill form) Saturday through Saturday 9:00 a.m. to 5:00 p.m. 2. [facility] accepts prescription medications (in pill form only) for disposal year round. Call for more information. 3. Contact the [facility] for the next [facility] sponsored prescription drug collection event. , [phone], or [phone]; PROCEDURE: Hip w/Pelvis 2-3V RT INDICATIONS: right hip pain TECHNIQUE: 2 views of the hip were acquired. COMPARISON: 08/12/2023 FINDINGS: Bones: No fractures or dislocations. No suspicious bony lesions. There is moderate to severe superior joint space narrowing seen involving the left hip. There is moderate right hip joint space narrowing. There is associated remodeling change, with subchondral sclerosis and osteophyte formation on both sides. Deformity can be seen of the superior aspect of the left humeral head. Note is made of age-appropriate degenerative change of the lower lumbar spine. Osteitis pubis can be seen, which is not considered to be abnormal for a female patient of this age. Soft tissues: No suspicious soft tissue calcifications or masses. IMPRESSION: No rita acute plain film abnormality is seen. Bilateral hip degenerative change can be seen, which is worse on the left side than on the right. If it would be helpful for clinical management decision making, please consider a dedicated hip MRI for further evaluation (assuming that there is no contraindication). If there is strong clinical concern for a labral abnormality, then this should be performed according to the arthrogram protocol. Forms: PCP List Discharge Date/Time: 01/18/24 13:38
[2024-01-18] MEDS: HYDROmorphone 1 MG/ML CARPUJECT IM STA (12:29)
[2024-01-18] MEDS: KETOROLAC 60 MG/2 ML VIAL IM STA (12:29)
--- NOTE | 2024-01-18 12:37 | XRAY Report ---
PROCEDURE: Hip w/Pelvis 2-3V RT INDICATIONS: right hip pain TECHNIQUE: 2 views of the hip were acquired. COMPARISON: 08/12/2023 FINDINGS: Bones: No fractures or dislocations. No suspicious bony lesions. There is moderate to severe superior joint space narrowing seen involving the left hip. There is mod erate right hip joint space narrowing. There is associated remodeling change, with subchondral sclero sis and osteophyte formation on both sides. Deformity can be seen of the superior aspect of the left humeral head. Note is made of age-appropriate degenerative change of the lower lumbar spine. Osteitis pubis can be seen, which is not considered to be abnormal for a female patient of this age. Soft tissues: No suspicious soft tissue calcifications or masses. IMPRESSION: No rita acute plain film abnormality is seen. Bilateral hip degenerative change can be seen, which is worse on the left side than on the right. If it would be helpful for clinical management decision making, please consider a dedicated hip MRI f or further evaluation (assuming that there is no contraindication). If there is strong clinical conc abdullahi for a labral abnormality, then this should be performed according to the arthrogram protocol. Reviewed by: Nate Darden MD on 01/18/2024 11:36 AM KERVIN Approved by: Nate Darden MD on 01/18/2024 11:36 AM KERVIN Station ID: [id number]
[2024-01-18 13:48] VITALS: BP 150/88; O2SAT 100
== END 2024-01-18 13:38 | disposition home or self-care (01) ==
LOC: ED 11:28
DX: M16.11 Unilateral primary osteoarthritis, right hip (principal)
CPT/HCPCS: 73502; 96372; 99284; J1170

== ENCOUNTER 2024-02-04 12:11 | Outpatient (CLI) | payer MEDICARE, BC ==
[2024-02-04] MEDS ORDERED: GADOTERATE MEGLUMINE 5 MMOL/10 ML VIAL ONE (12:27)
[2024-02-04] MEDS ORDERED: LIDOCAINE-MPF 1% 5 ML VIAL ONE (12:27)
[2024-02-04] MEDS ORDERED: iohexoL-240 10 ML VIAL IVP ONE (12:27)
[2024-02-04] MEDS: iohexoL-240 10 ML VIAL IVP ONE (14:31)
[2024-02-04] MEDS: LIDOCAINE-MPF 1% 5 ML VIAL TD ONE (14:33)
[2024-02-04] MEDS: GADOTERATE MEGLUMINE 5 MMOL/10 ML VIAL IVP ONE (14:35)
--- NOTE | 2024-02-04 15:50 | XRAY Report ---
PROCEDURE: Arthrogram Needle Placement INDICATIONS: PAINFUL R HIP COMPARISON: Pelvis and right of x-ray 01/18/2024 TECHNIQUE: Informed consent was obtained and the injection site was marked with ink. The patient, the procedure, and the site were confirmed during a pre-procedure huddle. Using sterile technique, local anesthesia , and fluoroscopic guidance, a 22 gauge needle was advanced through the skin into the right hip joint . Following intra-articular injection with 12 cc of a dilute gadolinium mixture (1:200 gadolinium di luted in equal parts 1% lidocaine and iodinated contrast) into the joint, the needle was removed, and hemostasis was obtained with direct pressure. There were no complications. Multiple images were obtained and archived. FINDINGS: There were no arthrographic abnormalities; a normal distribution of contrast in the joint was observe d. The patient reported subjective improvement in pain post-injection. IMPRESSION: Technically successful right hip arthrogram. The patient then had MR imaging. Please refer to the [facility] report for MRI findings. Reviewed by: Efe Weiner MD on 02/04/2024 3:49 PM PDT Approved by: Efe Weiner MD on 02/04/2024 3:49 PM PDT Station ID: [id number]
--- NOTE | 2024-02-04 15:55 | MRI Report ---
PROCEDURE: Arthrogram Hip RT INDICATIONS: 78 years of age, Female, PAINFUL R HIP TECHNIQUE: After the administration of 10 mL of dilute intra-articular Gadolinium contrast, coronal STIR of the bony pelvis; coronal and oblique axial T1 spin echo with fat saturation, axial T2 fast sp in echo with fat saturation, sagittal T1 spin echo with and without fat saturation of the involved hi p. COMPARISON: No priors available FINDINGS: Labrum: Superior labral tear, extending anteriorly to the anterior labrum. Ligaments: Unremarkable. Tendons: Iliopsoas, hamstring, and adductor tendons demonstrate normal signal and morphology without evidence of strain or tear. The right gluteal minimus tendon is unremarkable. The right gluteal mediu s is unremarkable as well. Osseous and cartilaginous structures: Degenerative changes of the lower lumbar spine, incompletely ev aluated. No marrow edema of the visualized lower lumbar spine. No marrow edema in the sacrum,, and ab out bilateral sacroiliac joints. Severe degenerative changes of bilateral hip with extensive subchondral marrow edema, joint space norah rowing, osteophytosis, and subchondral cystic changes in the acetabulum and femoral head, left greate r right. No avascular necrosis of the right femoral head. Small lobulated T2 hyperintense lesion in the right subtrochanteric femur, nonspecific but favors mel ign etiology. Miscellaneous: Sigmoid colon diverticulosis. IMPRESSION: Severe degenerative changes of bilateral hips, left greater than right. Reviewed by: Shelley Mallory MD on 02/04/2024 3:54 PM PDT Approved by: Shelley Mallory MD on 02/04/2024 3:54 PM PDT Station ID: [id number]
== END 2024-02-04 12:12 | disposition home or self-care (01) ==
LOC: DI 12:11
PROVIDERS: ATTEND Internal Medicine
DX: M25.551 Pain in right hip (principal); R26.2 Difficulty in walking, not elsewhere classified; M16.0 Bilateral primary osteoarthritis of hip; M19.90 Unspecified osteoarthritis, unspecified site
CPT/HCPCS: 27093; 73722; 77002; A9575; Q9966